=== PATIENT | female | born 1940 | race Native Hawaiian/Other Pacific Islander ===

== ENCOUNTER 2018-09-07 17:33 | Outpatient (CLI) | payer OTHER ==
[2018-09-07 18:04] LABS: PLATELET COUNT 190 K/uL (152-353)
[2018-09-07 18:23] LABS: POTASSIUM 4.6 mmol/L (3.6-5.2)
== END 2018-09-07 22:20 | disposition home or self-care (01) ==
LOC: LAB 17:33
PROVIDERS: Nurse Practitioner
DX: I10 Essential (primary) hypertension (principal); E78.00 Pure hypercholesterolemia, unspecified; R53.82 Chronic fatigue, unspecified; E55.9 Vitamin D deficiency, unspecified
CPT/HCPCS: 80053; 80061; 82306; 82607; 84443; 85027

== ENCOUNTER 2020-12-17 17:42 | Emergency (ER) | payer OTHER ==
[~2020-12-17] VITALS: Ht 175.3 cm; Wt 58.1 kg
[2020-12-17 19:27] LABS: PLATELET COUNT 202 K/uL (152-353)
[2020-12-17 20:00] LABS: POTASSIUM 4.6 mmol/L (3.6-5.2)
[2020-12-17 20:15] LABS: PARTIAL THROMBOPLASTIN TIME 26.1 SECONDS (24.5-33.6)
[2020-12-17 22:25] VITALS: BP 140/95; TEMP 98.1
== END 2020-12-17 22:25 | disposition home or self-care (01) ==
LOC: ED 17:42
PROVIDERS: Emergency Medicine
DX: I48.20 Chronic atrial fibrillation, unspecified (principal); Z79.01 Long term (current) use of anticoagulants; Z98.890 Other specified postprocedural states
CPT/HCPCS: 36415; 80053; 82550; 84484; 85027; 85610; 85730; 93005; 96374; 99284; J3490

== ENCOUNTER 2021-01-15 11:42 | Emergency (ER) | payer OTHER ==
[~2021-01-15] VITALS: Ht 175.3 cm; Wt 58.1 kg
[2021-01-15 11:55] VITALS: TEMP 98.6
[2021-01-15 12:40] LABS: PLATELET COUNT 167 K/uL (152-353)
[2021-01-15 14:22] VITALS: BP 133/88
== END 2021-01-15 14:24 | disposition home or self-care (01) ==
LOC: ED 11:42
PROVIDERS: Emergency Medicine
DX: M79.605 Pain in left leg (principal)
CPT/HCPCS: 85027; 86140; 99283

== ENCOUNTER 2021-05-11 23:11 | Inpatient (IN) | payer OTHER ==
[~2021-05-11] VITALS: Ht 170.2 cm; Wt 56.0 kg
[2021-05-11 23:15] VITALS: BP 170/78; TEMP 98.4
[2021-05-11 23:45] VITALS: BP 156/86
[2021-05-12] VITALS (15 sets, daily range): BP systolic 137–174; BP diastolic 73–94; TEMP 97.9–99.3; Ht 170.2 cm; Wt 56.0 kg
[2021-05-12 00:04] LABS: PLATELET COUNT 160 K/uL (152-353)
[2021-05-12 00:13] LABS: POTASSIUM 3.6 mmol/L (3.6-5.2)
[2021-05-12 00:24] LABS: PARTIAL THROMBOPLASTIN TIME 23.6 SECONDS (24.5-33.6)
[2021-05-12] MEDS ORDERED: ASPIRIN81 M2 PO (09:56)
[2021-05-12] MEDS ORDERED: ELIQUIS5 MG PO (09:57)
[2021-05-12] MEDS ORDERED: LIPITOR10 MG PO (09:57)
[2021-05-12] MEDS ORDERED: METO50TA27 PO (09:58)
[2021-05-12] MEDS ORDERED: LISI10TA11 PO (09:58)
[2021-05-13 03:37] VITALS: BP 142/87; TEMP 98.7
[2021-05-13 08:00] VITALS: BP 167/90; TEMP 98.1
== END 2021-05-13 11:46 | disposition home or self-care (01) | DRG 690 ==
LOC: ED 23:11 → MED/SURG 05-12 01:15
PROVIDERS: Hospitalist; ADMIT Internal Medicine Endocrinology, Diabetes & Metabolism; ATTEND Internal Medicine Endocrinology, Diabetes & Metabolism
DX: N30.00 Acute cystitis without hematuria (principal); N17.8 Other acute kidney failure; I48.91 Unspecified atrial fibrillation; K21.9 Gastro-esophageal reflux disease without esophagitis; I10 Essential (primary) hypertension; E78.49 Other hyperlipidemia; I73.89 Other specified peripheral vascular diseases; F03.90 Unspecified dementia, unspecified severity, without behavioral disturbance, psychotic disturbance, mood disturbance, and anxiety; E86.0 Dehydration
CPT/HCPCS: 36415; 80053; 80307; 80320; 81000; 82550; 83880; 84484; 85027; 85610; 85730; 87086; 87088; 87635; 93005; 96360; 96361; 96365; 96375; 99284; A9576; J0696; J1650; J1940; J2405; J3490; U0003

== ENCOUNTER 2021-12-04 14:37 | Outpatient (CLI) | payer OTHER ==
[~2021-12-04 14:37] MED LIST: ASPIRIN81 M2 PO; ELIQUIS5 MG PO; LIPITOR10 MG PO; LISI10TA11 PO; METO50TA27 PO
== END 2021-12-04 23:13 | disposition home or self-care (01) ==
LOC: US 14:37
PROVIDERS: ATTEND Internal Medicine Endocrinology, Diabetes & Metabolism
DX: I69.351 Hemiplegia and hemiparesis following cerebral infarction affecting right dominant side (principal); R42 Dizziness and giddiness

== ENCOUNTER 2022-04-03 18:18 | Emergency (ER) | payer OTHER ==
[~2022-04-03] VITALS: Ht 172.7 cm; Wt 56.7 kg
[2022-04-03 18:25] VITALS: TEMP 98.2
[2022-04-03 19:20] LABS: PLATELET COUNT 173 K/uL (152-353)
[2022-04-03 19:28] LABS: POTASSIUM 4.6 mmol/L (3.6-5.2)
[2022-04-03 21:00] VITALS: BP 171/73
== END 2022-04-03 21:25 | disposition home or self-care (01) ==
LOC: ED 18:18
PROVIDERS: Emergency Medicine
DX: I20.8 Other forms of angina pectoris (principal)
CPT/HCPCS: 80053; 82550; 84484; 85027; 85610; 85730; 93005; 99284